=== PATIENT | female | born 1965 | race Caucasian/White ===

== ENCOUNTER → 2021-02-23 | Outpatient (CLI) | payer OTHER | END | disposition home or self-care (01) | LOC: CFH 13:50 | PROVIDERS: ATTEND Physician Assistant | DX: N64.9 Disorder of breast, unspecified (principal) | CPT/HCPCS: 76642; 77062; 77066; G0279 ==

== ENCOUNTER 2021-05-04 15:46 | Outpatient (CLI) | payer OTHER | END 2021-05-04 23:59 | disposition home or self-care (01) | LOC: CVU 15:46 | PROVIDERS: ATTEND Internal Medicine Cardiovascular Disease | DX: I08.8 Other rheumatic multiple valve diseases (principal); R00.2 Palpitations; R07.9 Chest pain, unspecified | CPT/HCPCS: 93306 ==